=== PATIENT | male | born 1990 | race African-American/Black ===

== ENCOUNTER 2016-08-11 08:53 | Emergency (ER) | payer MEDICAID ==
[~2016-08-11] VITALS: Ht 180.3 cm; Wt 102.1 kg
[2016-08-11] MEDS ORDERED: FLONASE ALLERG9.9 ML NS (10:10)
[2016-08-11] MEDS ORDERED: OFLOXACIN5 ML OT (10:10)
[2016-08-11 10:56] VITALS: BP 130/80
--- NOTE | 2016-08-11 10:58 | Emergency Room Report ---
History of Present Illness General Chief Complaint: Earache Source: Patient Present Illness HPI 25 YO M with 3-4 days pain, and decreased hearing to right ear with nasal congestion and pressure. Denies tinnitus, headache. Uses Qtips to clean ears. Daughter also here in ED with right sided otitis media. Not taking any OTC meds for pain. Allergies: Coded Allergies: No Known Allergies (Unverified , 08/11/16) Patient History Past Medical History: none Past Surgical History: none Pertinent Family History: none Social History: Denies: alcohol use, drug use, smoking Immunizations: UTD Reviewed Nursing Documentation: PMH: Agreed, PSxH: Agreed Nursing Documentation-PMH Past Medical History: No Stated History Review of Systems All Other Systems: negative except mentioned in HPI Physical Exam Vital Signs Date Time Temp Pulse Resp B/P Pulse Ox O2 Delivery O2 Flow Rate FiO2 08/11/16 09:25 98.8 89 18 180/134 99 Room Air Sp02 EP Interpretation: reviewed, normal General Appearance: normal inspection, well appearing, no apparent distress, alert Head: normocephalic, atraumatic Eyes: bilateral eye EOMI, bilateral eye PERRL ENT: normal ENT inspection, hearing grossly normal, normal pharynx, no angioedema, normal voice, uvula midline, nasal congestion, other - Right ear canal is erythemaous. Bilateral TMS clear, no perforation Neck: normal inspection, full range of motion, supple, no bony tend Respiratory: normal inspection, lungs clear, normal breath sounds, no respiratory distress, no retraction, no wheezing Cardiovascular #1: regular rate, rhythm, no edema Gastrointestinal: normal inspection, normal bowel sounds, non tender, soft, no guarding, no hernia Genitourinary: no CVA tenderness Musculoskeletal: normal inspection, back normal, normal range of motion, Destiny' s Sign negative Neurologic: normal inspection, alert, oriented x3, responsive, sales and service consultant III-XII nml as tested, motor strength/tone normal, speech normal Psychiatric: normal inspection, judgement/insight normal, mood/affect normal Skin: normal inspection Medical Decision Making Diagnostic Impression: Primary Impression: Earache, right ER Course Possible right sided otitis externa. Obvious canal erythema. No perforation. Advised STOP Qtips Otic drops to right ear Flonase for possible eustachian tube dysfunction/inflammation PMD followup Last Vital Signs Date Time Temp Pulse Resp B/P Pulse Ox O2 Delivery O2 Flow Rate FiO2 08/11/16 09:25 98.8 89 18 180/134 99 Room Air Status: improved Disposition: HOME, SELF-CARE Condition: Improved Scripts Ofloxacin (OFLOXACIN) 5 Ml Drops 10 DROP OT once daily for 7 Days, #120 ML Prov: GUANAKITO CHAMBERS M.D. 08/11/16 Fluticasone Propionate (Flonase Allergy Relief) 9.9 Ml [place].susp 9.9 ML NS BID for 7 Days, #1 UNIT Prov: GUANAKITO CHAMBERS M.D. 08/11/16 Referrals: [facility]/,REFERRING (PCP) Patient Instructions: Otitis Externa, [id number] Additional Instructions: - STOP using Qtips to clear ears - Use nasal steroids twice a day, both nares - Apply ear drop antibiotics as prescribed - Followup with your primary care doctor in 2-3 days GUANAKITO CHAMBERS M.D. Aug 11, 2016 10:58
== END 2016-08-11 10:57 | disposition home or self-care (01) ==
LOC: EMR 10:21
DX: H92.01 Otalgia, right ear (principal)
CPT/HCPCS: 99283

== ENCOUNTER 2019-06-12 23:37 | Emergency (ER) | payer MEDICAID, OTHER ==
[~2019-06-12] VITALS: Ht 177.8 cm; Wt 95.3 kg
[~2019-06-12 23:37] MED LIST: FLONASE ALLERG9.9 ML NS; OFLOXACIN5 ML OT
[2019-06-13 02:10] VITALS: BP 166/98
[2019-06-13] MEDS ORDERED: POLYTRIM OP SOL10 ML OPHTHALM (02:27)
--- NOTE | 2019-06-13 02:28 | Emergency Room Report ---
History of Present Illness General Chief Complaint: Eye Problems Source: Patient Present Illness HPI Is a 28-year-old male with no past medical history. Presents with chief complaint of eye pain. Onset about a. He slept with his contact lenses in. The next day was irritated and very painful. He used [id number] Visine and that helps some. Lights bother his eyes. No nausea no vomiting. Some redness. Denies any other complaint. Initially pain was 10 out of 10. Now 7 out of 10. Allergies: Coded Allergies: No Known Allergies (Unverified , 08/11/16) Patient History Past Medical History: see triage record, old chart reviewed Past Surgical History: none Pertinent Family History: none Social History: Denies: smoking Immunizations: other Reviewed Nursing Documentation: PMH: Agreed; PSxH: Agreed Nursing Documentation-PMH Past Medical History: No Stated History Review of Systems Eye: Reports: eye pain; Denies: blurred vision ENT: Denies: ear pain, nose congestion, throat swelling Respiratory: Denies: cough, shortness of breath Cardiovascular: Denies: chest pain, palpitations Gastrointestinal: Denies: abdominal pain, diarrhea, nausea, vomiting Musculoskeletal: Denies: back pain, joint pain Skin: Denies: rash Neurological: Denies: headache, numbness Endocrine: Denies: increased thirst, increased urine Hematologic/Lymphatic: Denies: easy bruising All Other Systems: negative except mentioned in HPI Physical Exam Vital Signs Date Time Temp Pulse Resp B/P (MAP) Pulse Ox O2 Delivery O2 Flow Rate FiO2 06/13/19 00:10 97.9 82 14 166/98 (120) 96 Room Air Vitals with high blood pressure Sp02 EP Interpretation: reviewed, normal General Appearance: well appearing, no apparent distress, alert Head: normocephalic, atraumatic Eyes: left eye other - Left eye: There is a corneal abrasion at the 1 to 2 o' clock position. No foreign body. No globe rupture.; bilateral eye PERRL, bilateral eye EOMI ENT: hearing grossly normal, normal pharynx Neck: full range of motion, supple, no meningismus Respiratory: chest non-tender, lungs clear, normal breath sounds Cardiovascular #1: regular rate, rhythm, no murmur Gastrointestinal: normal bowel sounds, non tender, no mass, no organomegaly, no bruit, non-distended Musculoskeletal: back normal, normal range of motion, gait/station normal Psychiatric: mood/affect normal Medical Decision Making Diagnostic Impression: Primary Impression: Corneal abrasion, left Qualified Codes: S05.02XA - Injury of conjunctiva and corneal abrasion without foreign body, left eye, initial encounter ER Course With a corneal abrasion secondary to his contact lens. We will put him on antibiotic drop. No evidence of globe rupture or foreign body. Will discharge home. Last Vital Signs Date Time Temp Pulse Resp B/P (MAP) Pulse Ox O2 Delivery O2 Flow Rate FiO2 06/13/19 00:10 97.9 82 14 166/98 (120) 96 Room Air Status: improved Disposition: HOME, SELF-CARE Condition: Stable Scripts Polymyxin/Trimethoprim (Polytrim Eye Drops) 10 Ml Drops 2 DROP OPHTHALM THREE TIMES A DAY, #1 EA Instill in affected eye for 7 days Prov: Owen Matamoros MD 06/13/19 Referrals: [facility],REFERRING (PCP) Additional Instructions: Follow-up with your doctor in 7 days. You may need referral to see an eye doctor if not better. Return if symptoms worsen. Hold off contact lenses until completely better. Owen Matamoros MD Jun 13, 2019 02:28
[2019-06-13 02:30] VITALS: BP 152/88
== END 2019-06-13 02:30 | disposition home or self-care (01) ==
LOC: EMR 06-13 02:11
DX: S05.02XA Injury of conjunctiva and corneal abrasion without foreign body, left eye, initial encounter (principal); X58.XXXA Exposure to other specified factors, initial encounter; Y92.9 Unspecified place or not applicable
CPT/HCPCS: 99282